=== PATIENT | male | born 2000 | race Caucasian/White ===

== ENCOUNTER 2021-08-02 19:28 | Emergency (ER) | payer OTHER, SELFPAY ==
[2021-08-02 19:30] VITALS: BP 147/67; PULSE 80; RESP 18; TEMP 37; O2SAT 96
--- NOTE | 2021-08-02 20:27 | ED.SKABFB ---
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 Reports his rash started a few months ago and has been getting progressively worse he saw his primary care doctor he is currently on oral steroids, steroid cream. He is attempted hydroxyzine with minimal relief of his symptoms. Reports the rashes all over his body is primarily itching but is now painful due to the itching and skin breakdown he is noted. Denies any rash to his eyes or oropharynx or genital. Denies any recent antibiotics. No one else in the house has a similar rash denies any prior dermatological conditions. [facility]. Related Data Allergies Allergy/AdvReac Type Severity Reaction Status Date / Time No Known Allergies Allergy Unverified 08/02/21 19:32 Review of Systems Review of Systems: CONSTITUTIONAL: Denies fever, chills, or sweats. EYES: Denies visual changes, redness, or discharge. ENT: Denies rhinorrhea, congestion, sore throat, or otalgia. CARDIOVASCULAR: Denies chest pain, palpitations, or edema. RESPIRATORY: Denies cough or dyspnea. GASTROINTESTINAL: Denies abdominal pain, nausea, vomiting, or diarrhea. GENITOURINARY: Denies dysuria or hematuria. SKIN: Reports diffuse rash and itching MUSCULOSKELETAL: Denies back pain, joint pain, or myalgia. NEUROLOGIC: Denies headache, numbness, dizziness, or weakness. PSYCHIATRIC: Denies anxiety or depression. All systems reviewed & are unremarkable except as noted in HPI and below PMFSH Past Medical History Medical History (Updated 08/02/21 @ 21:17 by Lev Redd MD) Patient denies significant medical history Social History Social History (Updated 08/02/21 @ 20:29 by Lev Redd MD) Living arrangements: with family Exam Narrative: GENERAL: Well-appearing, well-nourished, and in no acute distress. HEAD: Normocephalic, atraumatic. EYES: PERRLA and EOMI. ENT: Nares clear, no rhinorrhea or epistaxis. Mucous membranes moist. NECK: Supple. No masses. No JVD CHEST: Clear to auscultation. No respiratory distress. No wheezes rales or rhonchi HEART: Regular rate and rhythm. No murmur heard. Normal peripheral pulses. ABDOMEN: Soft, nontender, nondistended, normal active bowel sounds. EXTREMITIES: Normal range of motion. Pitting edema symmetric 1+ in bilateral lower extremities SKIN: Diffuse rash noted on the torso and extremities it is red beefy with overlying dry skin that is not focal on any extensor or flexor surfaces. There is overlying excoriation with mild skin breakdown. NEURO: No focal deficits. Alert and oriented x3. PSYCH: Normal mood and affect. Course Reevaluation(s) Reevaluation #1: Patient resting company results and plan reviewed with patient. Patient is comfortable outpatient plan. Date: 08/02/21 Time: 21:32 Vital Signs Vital signs: Vital Signs Temperature 37.0 C 08/02/21 19:30 Pulse Rate 80 08/02/21 19:30 Respiratory Rate 18 08/02/21 19:30 Blood Pressure 147/67 H 08/02/21 19:30 Pulse Oximetry 96 08/02/21 19:30 Temperature 37.0 C 08/02/21 19:30 Pulse Rate 69 08/02/21 21:46 Respiratory Rate 16 08/02/21 21:46 Blood Pressure 123/71 08/02/21 21:46 Pulse Oximetry 98 08/02/21 21:46 MDM - Skin/Abscess/Foreign Bdy MDM Narrative Medical decision making narrative: H&P as above, vss, pt looks clinically well, exam diffuse red beefy rash, labs clinically unremarkable, additional labs/img considered, symptomatic relief available as needed, on reevaluation pt continues to looks clinically well. Rash remains of unclear etiology is already attempted antihistamines as well as steroids we will start him on a trial of antifungals we will do systemic given diffuse nature
[2021-08-02 21:05] LABS: Alanine Aminotransferase 19 U/L (4-50); Albumin Level 4.6 g/dL (3.5-5.1); Alkaline Phosphatase 72 U/L (38-126); Anion Gap 9 mmol/L (8-16); Aspartate Amino Transferase 22 U/L (17-59); Bilirubin,Total 0.4 mg/dL (0.2-1.3); Blood Urea Nitrogen 18 mg/dL (9-20); Calcium 9.4 mg/dL (8.4-10.2); Carbon Dioxide 25 mmol/L (22-30); Chloride 105 mmol/L (98-107); Estimated CRCL calculation 119 ml/min; Estimated Glomerular Filt Rate > 60; Glucose 115 mg/dL (65-110); Potassium 4.5 mmol/L (3.4-5.0); Sodium 139 mmol/L (137-145)
[2021-08-02 21:28] LABS: Basophils Percent Auto 0.2 % (0.2-1.2); Hematocrit 42.8 % (42.0-52.0); Hemoglobin 14.1 g/dL (14.0-18.0); Immature Granulocyte Absolute 0.06 K/mm3 (0.00-0.031); Immature Granulocyte Percent A 0.5 % (0-0.5); Lymphocytes Absolute Auto 1.17 K/mm3 (0.9-3.2); Lymphocytes Percent Auto 9.1 % (18.3-44.2); Mean Corpuscular HGB Conc 32.9 g/dl (32-36); Mean Corpuscular Hemoglobin 29.1 pg (26-34); Mean Corpuscular Volume 88.4 fl (80-100); Mean Platelet Volume 9.4 fl (7.4-10.4); Monocytes Absolute Auto 0.6 K/mm3 (0.1-0.6); Monocytes Percent Auto 4.3 % (2.6-8.5); Neutrophils Absolute Auto 11.1 K/mm3 (1.3-6.7); Neutrophils Percent Auto 85.9 % (45.5-73.1); Platelet Count Result 261 k/mm3 (150-375); Red Blood Count 4.84 M/mm3 (4.6-6.20); Red Cell Distribution Width 13.2 % (11.5-14.5); White Blood Count 12.9 K/mm3 (4.5-10.0)
[2021-08-02 21:46] VITALS: BP 123/71; PULSE 69; RESP 16; O2SAT 98
== END 2021-08-02 21:48 | disposition home or self-care (01) ==
PROVIDERS: Emergency Provider Emergency Medicine; PCP Nurse Practitioner Family
DX: R21 Rash and other nonspecific skin eruption (principal)
CPT/HCPCS: 36415; 80053; 85025; 99283